=== PATIENT | female | born 1955 | race Caucasian/White ===

== ENCOUNTER → 2018-11-15 08:37 | Outpatient (CLI) | payer BC, SELFPAY ==
[2018-11-15 14:36] LABS: Alanine Aminotransferase 19 U/L (12-78); Albumin Level 3.6 gm/dL (3.4-5.0); Albumin/Globulin Ratio 1.3 (1.1-1.8); Alkaline Phosphatase 81 U/L (46-116); Anion Gap 17.4 mEq/L (5-15); Aspartate Amino Transferase 5 U/L (15-37); Bilirubin,Total 0.4 mg/dL (0.2-1.0); Blood Urea Nitrogen 25 mg/dL (7-18); Calcium 8.9 mg/dL (8.5-10.1); Carbon Dioxide 23 mmol/L (21.0-32.0); Chloride 104 mmol/L (98-107); Chol/HDL Ratio 3.7 (1-3.5); Cholesterol 142 mg/dL (140-200); Creatinine,Serum 1.44 mg/dL (0.55-1.02); Estimated Glomerular Filt Rate 37 ml/min (>60); GFR (African American) 44 ML/MIN (>60); Globulin 2.8 gm/dl (1.3-3.2); Glucose 100 mg/dL (74-106); HDL Cholesterol 38 mg/dL (29-89); LDL Cholesterol 60 mg/dL (0-130); Potassium 4.4 mmoL/L (3.5-5.1); Sodium 140 mmol/L (136-145); Thyroid Stimulating Hormone 0.07 uIU/ml (0.358-3.740); Total Protein,Serum 6.4 gm/dL (6.4-8.2); Triglycerides 218 mg/dL (30-200); VLDL Cholesterol 44 mg/dL (0-40)
== END ==
PROVIDERS: PCP Nurse Practitioner Family; Visit Provider Nurse Practitioner Family
DX: N18.9 Chronic kidney disease, unspecified (principal); E03.4 Atrophy of thyroid (acquired); E78.1 Pure hyperglyceridemia
CPT/HCPCS: 36415; 80053; 80061; 84443

== ENCOUNTER → 2020-09-22 10:52 | Outpatient (CLI) | payer MEDICARE, SELFPAY ==
--- NOTE | 2020-09-22 | CA_ITS ---
APPROVED REPORT EXAM: Comprehensive 2D, Doppler, and color-flow Echocardiogram [employer] Architect: Teressa Osman RT(R) Ht: 4 ft 10 in Wt: 225lbs BSA: 1.91 BP: 148/80 mmHg Indications: SOB, fatigue, obesity, HTN, family history of HD, SOLO 2D Dimensions LVOT 1.90 cm (M/F) 1.5-2.5 M-Mode Dimensions RVDd 3.57 cm (0.9-2.6) LA Diam 4.66 cm (1.9-4.0) LVDd 4.23 cm (3.5-5.7) Ao Diam 2.35 cm (2.0-3.7) LVDs 3.29 cm (3.5-5.7) IVSd 1.03 cm (0.6-1.1) PWd 1.13 cm (0.6-1.1) EF (Teich) 45.20% FS 22.20% EDV (Teich) 79.90 mL ESV (Teich) 43.80 mL LV Diastology E Decel Time 210.00 (160-240 msec) E/A Ratio 0.8 MED E' 10.10 (< 7 cm/sec) E'/MED E' Ratio 6.66 (>14) LAT E' 8.60 (<10 cm/sec) E/LAT E' Ratio 7.83 (>14) Mitral Valve MV E Max Deandre. 67.00 (40-130 cm/s) MV A Velocity 89.00 (40-130 cm/s) E/A Ratio 0.76 MV Decel. Time 210.00 (160-240 ms) MV PHT 62.00 ms Left Ventricle Left atrium is mildly enlarged, left ventricle is normal size, mild concentric left ventricular hypertrophy, visually estimated ejection fraction 55% with no regional wall motion abnormality, grade 1 diastolic dysfunction seen without tissue Doppler evidence of raise left atrial pressure. Right Ventricle Right atrium and right ventricle mildly enlarged with normal contractility. Aortic Valve Aortic valve is minimally thickened and fibrosed, there is no aortic stenosis or aortic insufficiency. Mitral Valve Mitral valve is grossly normal, there is trace mitral regurgitation. Tricuspid Valve Tricuspid valve grossly normal, there is trace tricuspid regurgitation. Tricuspid regurgitation jet velocity is inadequate for calculation of the right ventricular systolic pressure. Pulmonic Valve Pulmonic valve is poorly visualized. Great Vessels Aortic root is normal size. Pericardium No significant pericardial effusion noted. Conclusion 1. Mildly enlarged left atrium, normal left ventricular size, mild concentric left ventricular hypertrophy, visually estimated ejection fraction 55% with no regional wall motion abnormality, grade 1 diastolic dysfunction seen without tissue Doppler evidence of raise left atrial pressure. 2. Mildly enlarged right ventricle with normal contractility. 3. Trace mitral and tricuspid regurgitation. 4. No significant pericardial effusion noted. Electronically signed by : Catarino Scanlon, 09/22/2020 20:38:03
--- NOTE | 2020-09-22 11:45 | XR_ITS ---
PROCEDURE: XR CHEST 2V CLINICAL HISTORY: DYSPNEA,UNSPECIFIED COMPARISON: CR CXR CHEST(2 VIEWS-NOT PORTABLE) from 09/12/2012 CR CXR CHEST(2 VIEWS-NOT PORTABLE) from 04/25/2015 FINDINGS: The cardiomediastinal silhouette and pulmonary vascularity are within normal limits. Tortuous descending thoracic aorta is noted. Minor bibasal atelectasis. No lobar consolidation, pleural effusions or pneumothorax. Minor degenerative changes of the visualized thoracic spine. IMPRESSION: No focal consolidation or pleural effusions. Minor bibasilar atelectasis. Dictated by: Shamika Rocha 09/22/2020 12:16 Shamika Rocha in OV 09/22/2020 12:16
== END ==
PROVIDERS: PCP Nurse Practitioner Family; Visit Provider Nurse Practitioner Family
DX: R06.09 Other forms of dyspnea (principal); I10 Essential (primary) hypertension
CPT/HCPCS: 71046; 93306

== ENCOUNTER → 2020-10-06 08:06 | Outpatient (CLI) | payer MEDICARE, SELFPAY ==
[2020-10-06 08:45] VITALS: PULSE 88; PULSE 90
[2020-10-06 10:29] LABS: Basophils # 0.1 K/mm3 (0-0.2); Basophils % 0.6 % (0.1-2.0); Eosinophils # 0.4 K/mm3 (0.0-0.4); Eosinophils % 4.9 % (0.1-12.0); Hematocrit 29.2 % (37.0-47.0); Hemoglobin 9.8 g/dL (12.2-16.2); Lymphocytes # 1.1 K/mm3 (0.7-4.5); Lymphocytes % 14.8 % (10-50); Mean Corpuscular HGB Conc 33.7 g/dL (31.8-35.4); Mean Corpuscular Hemoglobin 35.6 pg (27.0-31.2); Mean Corpuscular Volume 105.6 fl (81-99); Mean Platelet Volume 7.9 fl (7.4-10.4); Monocytes # 0.2 K/mm3 (0.1-1.0); Monocytes % 3.2 % (1.7-9.3); Neutrophils # 5.5 K/mm3 (1.8-7.8); Neutrophils % 76.5 % (37.0-80.0); Platelet Count 324 K/mm3 (142-424); Red Blood Count 2.77 M/mm3 (4.20-5.40); Red Cell Distribution Width 21.4 % (11.5-17.5); White Blood Count 7.2 K/mm3 (4.8-10.8)
[2020-10-06 10:45] LABS: Chloride 106 mmol/L (98-107)
[2020-10-06 10:46] LABS: Potassium 4.9 mmoL/L (3.5-5.1); Sodium 135 mmol/L (136-145)
[2020-10-06 10:48] LABS: Alanine Aminotransferase 15 U/L (12-78); Alkaline Phosphatase 85 U/L (38-126); Anion Gap 11.9 mEq/L (5-15); Aspartate Amino Transferase 23 U/L (14-36); Bilirubin,Total 0.7 mg/dl (0.2-1.3); Blood Urea Nitrogen 20 mg/dl (7-17); Carbon Dioxide 22 mmol/L (22.0-30.0); Estimated Glomerular Filt Rate 41 ml/min (>60); GFR (African American) 50 ML/MIN (>60)
[2020-10-06 10:49] LABS: Albumin/Globulin Ratio 1.8 (1.1-1.8); Calcium 8.9 mg/dl (8.4-10.2); Globulin 2.2 g/dL (1.3-3.2); Glucose 121 mg/dl (74-100); Iron 115 ug/dL (37-170); Total Protein,Serum 6.2 g/dl (6.3-8.2)
[2020-10-06 10:57] LABS: NT Pro Brain Natriuretic Pep. 627 pg/mL (0-125)
[2020-10-06 11:02] LABS: Total Iron Binding Capacity 385 ug/dL (265-497)
[2020-10-06 11:19] LABS: Thyroid Stimulating Hormone 1.11 uIU/mL (0.465-4.68)
[2020-10-06 14:08] LABS: Ferritin 20.3 ng/ml (11.1-264)
== END ==
PROVIDERS: PCP Nurse Practitioner Family; Visit Provider Nurse Practitioner Family
DX: R06.00 Dyspnea, unspecified (principal); D63.1 Anemia in chronic kidney disease; N18.9 Chronic kidney disease, unspecified
CPT/HCPCS: 36415; 80053; 82728; 83540; 83550; 83880; 84443; 85025; 85378; 94060; 94640; 94727; 94729

== ENCOUNTER 2021-09-17 13:51 | Outpatient (CLI) | payer MEDICARE, SELFPAY ==
[2021-09-17 14:23] VITALS: BMI 45.6
[2021-09-17 14:45] VITALS: BP 166/83; PULSE 74; RESP 18; TEMP 36.3; O2SAT 97
[2021-09-17 15:01] LABS: Chloride 103 mmol/L (98-107)
[2021-09-17 15:02] LABS: Potassium 4.1 mmoL/L (3.5-5.1); Sodium 137 mmol/L (136-145)
[2021-09-17 15:05] LABS: Anion Gap 11.1 mEq/L (5-15); Blood Urea Nitrogen 21 mg/dl (7-17); Calcium 8.5 mg/dl (8.4-10.2); Carbon Dioxide 27 mmol/L (22.0-30.0); Creatinine Clearance Estimated 22 mL/min (50-200); Estimated Glomerular Filt Rate 32 ml/min (>60); GFR (African American) 39 ML/MIN (>60); Glucose 133 mg/dl (74-100)
== END 2021-09-17 15:10 | disposition home or self-care (01) ==
LOC: INF 13:53
PROVIDERS: PCP Nurse Practitioner Family; Visit Provider Internal Medicine Endocrinology, Diabetes & Metabolism
DX: M80.00XG Age-related osteoporosis with current pathological fracture, unspecified site, subsequent encounter for fracture with delayed healing (principal)
CPT/HCPCS: 36415; 80048; 96372; J0897

== ENCOUNTER 2021-12-01 13:36 | Outpatient (CLI) | payer MEDICARE, SELFPAY ==
[2021-12-01 13:57] VITALS: BMI 47.6
--- NOTE | 2021-12-01 14:27 | PC.NURSE ---
Called SILVIANO Rosa from Dr. Augustin office and was told to not give ordered premeds of benedryl and tylenol due to pt not having a ride home. pt stated she didn't feel comfortable driving after taking benedryl so premeds were held.
[2021-12-01 14:36] LABS: Basophils # 0.1 K/mm3 (0-0.2); Basophils % 1.2 % (0.1-2.0); Eosinophils # 0.2 K/mm3 (0.0-0.4); Eosinophils % 2.6 % (0.1-12.0); Hematocrit 31.9 % (37.0-47.0); Hemoglobin 10.5 g/dL (12.2-16.2); Lymphocytes % 12.4 % (10-50); Mean Corpuscular HGB Conc 32.8 g/dL (31.8-35.4); Mean Corpuscular Hemoglobin 29.5 pg (27.0-31.2); Mean Corpuscular Volume 89.9 fl (81-99); Mean Platelet Volume 8.7 fl (7.4-10.4); Monocytes # 0.5 K/mm3 (0.1-1.0); Monocytes % 5.5 % (1.7-9.3); Neutrophils # 6.5 K/mm3 (1.8-7.8); Neutrophils % 78.2 % (37.0-80.0); Platelet Count 293 K/mm3 (142-424); Red Blood Count 3.55 M/mm3 (4.20-5.40); Red Cell Distribution Width 15.9 % (11.5-17.5); White Blood Count 8.3 K/mm3 (4.8-10.8)
[2021-12-01 15:19] VITALS: BP 113/65; PULSE 77; RESP 18; TEMP 36.4; O2SAT 100
[2021-12-01 15:50] VITALS: BP 160/91; PULSE 78; RESP 21; O2SAT 100
== END 2021-12-01 15:50 | disposition home or self-care (01) ==
DX: D50.8 Other iron deficiency anemias (principal); N18.32 Chronic kidney disease, stage 3b
CPT/HCPCS: 85025; 96365; J1756

== ENCOUNTER 2021-12-01 16:00 | Outpatient (RCR) | payer MEDICARE, SELFPAY | END 2021-12-30 13:30 | disposition home or self-care (01) | LOC: PT 16:00 | PROVIDERS: PCP Nurse Practitioner Family; Visit Provider Orthopaedic Surgery Hand Surgery | DX: M25.611 Stiffness of right shoulder, not elsewhere classified (principal) | CPT/HCPCS: 97010; 97014; 97110; 97140; 97163; 97164; 97760; G0283 ==

== ENCOUNTER 2021-12-04 14:05 | Outpatient (CLI) | payer MEDICARE, SELFPAY ==
[2021-12-04 14:30] VITALS: BP 188/84; PULSE 75; RESP 18; O2SAT 99
[2021-12-04 15:10] VITALS: BP 184/90; PULSE 71; RESP 16
== END 2021-12-04 15:30 | disposition home or self-care (01) ==
PROVIDERS: Visit Provider Internal Medicine
DX: N18.32 Chronic kidney disease, stage 3b (principal); D63.1 Anemia in chronic kidney disease; D50.8 Other iron deficiency anemias
CPT/HCPCS: 96365; J1756

== ENCOUNTER 2021-12-08 13:52 | Outpatient (CLI) | payer MEDICARE, SELFPAY ==
[2021-12-08 14:19] VITALS: BP 171/70; PULSE 80; RESP 16; TEMP 36.4; O2SAT 100
[2021-12-08 15:05] VITALS: BP 163/68; PULSE 78; RESP 16; TEMP 36.4; O2SAT 99
== END 2021-12-08 15:08 | disposition home or self-care (01) ==
LOC: INF 13:53
PROVIDERS: Visit Provider Internal Medicine
DX: N18.32 Chronic kidney disease, stage 3b (principal); D50.8 Other iron deficiency anemias
CPT/HCPCS: 96365; J1756

== ENCOUNTER 2021-12-14 13:51 | Outpatient (CLI) | payer MEDICARE, SELFPAY ==
[2021-12-14 14:15] VITALS: BP 158/78; PULSE 84; RESP 18; TEMP 36.6; O2SAT 100
[2021-12-14 15:00] VITALS: BP 162/83; PULSE 86; RESP 18; TEMP 36.6; O2SAT 99
== END 2021-12-14 15:00 | disposition home or self-care (01) ==
LOC: INF 13:52
PROVIDERS: Visit Provider Internal Medicine Gastroenterology
DX: N18.32 Chronic kidney disease, stage 3b (principal); D63.1 Anemia in chronic kidney disease; D50.8 Other iron deficiency anemias
CPT/HCPCS: 96365; J1756

== ENCOUNTER 2021-12-16 13:59 | Outpatient (CLI) | payer MEDICARE, SELFPAY ==
[2021-12-16 14:25] VITALS: BP 151/80; PULSE 79; RESP 18; O2SAT 96
[2021-12-16 15:00] VITALS: BP 146/78; PULSE 74; RESP 16
== END 2021-12-16 15:15 | disposition home or self-care (01) ==
LOC: INF 13:59
PROVIDERS: PCP Nurse Practitioner Family; Visit Provider Internal Medicine
DX: N18.32 Chronic kidney disease, stage 3b (principal)
CPT/HCPCS: 96365; J1756

== ENCOUNTER → 2022-04-06 14:16 | Outpatient (CLI) | payer MEDICARE, SELFPAY ==
--- NOTE | 2022-04-06 14:20 | XR_ITS ---
FINAL REPORT CLINICAL HISTORY: pain FINDINGS: RIGHT FOOT Three views of the right foot were obtained. There is no acute fracture or dislocation. There is mild pes planus. There are moderate degenerative changes at the 1st MTP joint with mild degenerative changes elsewhere. There is lateral angulation of the 2nd distal phalanx at the DIP joint. There is no soft tissue abnormality. IMPRESSION: Mild pes planus and degenerative changes with no acute bony abnormality. Reviewed, Interpreted and Dictated by Gama Briseno III, MD Transcribed by Deja Douglas Authenticated and [facility]
--- NOTE | 2022-04-06 14:20 | XR_ITS ---
FINAL REPORT CLINICAL HISTORY: pain FINDINGS: LEFT ANKLE Three views of the left ankle were obtained. There is no acute fracture or dislocation. There is pes planus. There are mild degenerative changes. There is no soft tissue abnormality. IMPRESSION: Pes planus and mild degenerative changes with no acute bony abnormality. Reviewed, Interpreted and Dictated by Gama Briseno III, MD Transcribed by Deja Douglas Authenticated and [facility]
--- NOTE | 2022-04-06 14:20 | XR_ITS ---
FINAL REPORT CLINICAL HISTORY: pain FINDINGS: RIGHT ANKLE Three views of the right ankle were obtained. There is no acute fracture or dislocation. There is mild pes planus. There are mild degenerative changes. There is no soft tissue abnormality. IMPRESSION: Mild pes planus and degenerative changes with no acute bony abnormality. Reviewed, Interpreted and Dictated by Gama Briseno III, MD Transcribed by Deja Douglas Authenticated and [facility]
--- NOTE | 2022-04-06 14:20 | XR_ITS ---
FINAL REPORT CLINICAL HISTORY: pain FINDINGS: LEFT FOOT Three views of the left foot were obtained. There is no acute fracture or dislocation. There is hallux valgus deformity. There is pes planus. There are moderate degenerative changes at the 1st MTP joint with mild degenerative changes elsewhere. There is no soft tissue abnormality. IMPRESSION: Hallux valgus deformity. Pes planus and degenerative changes with no acute bony abnormality. Reviewed, Interpreted and Dictated by Gama Briseno III, MD Transcribed by Deja Douglas Authenticated and . [facility]
== END ==
PROVIDERS: PCP Nurse Practitioner Family; Visit Provider Podiatrist
DX: M79.671 Pain in right foot (principal); M79.672 Pain in left foot; M25.571 Pain in right ankle and joints of right foot; M25.572 Pain in left ankle and joints of left foot
CPT/HCPCS: 73610; 73630

== ENCOUNTER → 2022-05-07 12:27 | Outpatient (CLI) | payer MEDICARE, SELFPAY ==
--- NOTE | 2022-05-07 12:40 | CA_ITS ---
APPROVED REPORT EXAM: Comprehensive 2D, Doppler, and color-flow Echocardiogram Mammography Tech: Lianne Andres CRT Ht: 4 ft 9 in Wt: 193lbs BSA: 1.77 BP: 140/80 mmHg Indications: CHF,SOLO,GERD,OBESITY,HTN,HLD 2D Dimensions LVOT 1.97 cm (M/F) 1.5-2.5 LA Volume 34.00 mL LA Volume Index 19.20 mL/m2 (M/F) 16-34 M-Mode Dimensions RVDd 2.95 cm (0.9-2.6) LA Diam 3.50 cm (1.9-4.0) LVDd 5.09 cm (3.5-5.7) Ao Diam 4.06 cm (2.0-3.7) LVDs 3.73 cm (3.5-5.7) IVSd 1.86 cm (0.6-1.1) PWd 1.08 cm (0.6-1.1) EF (Teich) 51.90% FS 26.70% EDV (Teich) 123.20 mL ESV (Teich) 59.30 mL LV Diastology E Decel Time 187.00 (160-240 msec) E/A Ratio 0.8 MED E' 4.40 (< 7 cm/sec) MED A' 9.60 cm/s E'/MED E' Ratio 20.70 (>14) LAT E' 4.00 (<10 cm/sec) LAT A' 11.20 cm/s E/LAT E' Ratio 22.77 (>14) Aortic Valve AI PHT 636.00 ms AO Peak GR. 6.10 mmHg Mitral Valve MV E Max Deandre. 91.00 (40-130 cm/s) MV A Velocity 112.00 (40-130 cm/s) E/A Ratio 0.81 MV Decel. Time 187.00 (160-240 ms) MV PHT 55.00 ms Pulmonary Valve PV Peak Velocity 163.00 (50-150 cm/s) Tricuspid Valve TR P. Velocity 279.00 cm/s RAP Estimate 10.00 mmHg RVSP 41.20 mmHg Left Ventricle Left atrium is mildly enlarged, left ventricle is normal size, mild concentric left ventricular hypertrophy, estimated ejection fraction 55% with no regional wall motion abnormality, grade 1 diastolic dysfunction seen with tissue Doppler evidence of raise left atrial pressure. Right Ventricle Right atrium and right ventricle are mildly enlarged with normal contractility. Aortic Valve Aortic valve is minimally thickened and fibrosed there is no aortic stenosis, there is trace aortic insufficiency. Mitral Valve Mitral valve is grossly normal, there is trace mitral regurgitation. Tricuspid Valve Tricuspid valve grossly normal, there is trace tricuspid regurgitation, tricuspid regurgitation request is inadequate for calculation of the right ventricular systolic pressure. Pulmonic Valve Pulmonic valve is poorly visualized. Great Vessels Aortic root is normal size. Inferior vena cava is poorly visualized. Pericardium No significant pericardial effusion noted. Conclusion 1. Mild biatrial enlargement, normal left ventricular size, mild concentric left ventricular hypertrophy, estimated ejection fraction 55% with no regional wall motion abnormality, grade 1 diastolic dysfunction seen with tissue Doppler evidence of raise left atrial pressure. 2. Trace aortic, mitral and tricuspid regurgitation. 3. No significant pericardial effusion. 4. Inferior vena cava is poorly visualized. Electronically signed by : Catarino Scanlon MD 05/07/2022 15:04:51
== END ==
PROVIDERS: PCP Nurse Practitioner Family; Visit Provider Nurse Practitioner
DX: R06.02 Shortness of breath (principal)
CPT/HCPCS: 93306

== ENCOUNTER 2022-05-13 13:00 | Outpatient (RCR) | payer MEDICARE, SELFPAY | END 2022-07-06 13:56 | disposition home or self-care (01) | LOC: PT.CARL 13:00 | PROVIDERS: PCP Nurse Practitioner Family; Visit Provider Nurse Practitioner Family | DX: R27.0 Ataxia, unspecified (principal) | CPT/HCPCS: 97110; 97112; 97163; 97164; 97530 ==

== ENCOUNTER → 2022-07-06 07:50 | Outpatient (CLI) | payer MEDICARE, SELFPAY ==
--- NOTE | 2022-07-06 | CA_ITS ---
APPROVED REPORT Exam: Pharmacologic Technologist: Batool Shaw Ht: 4 ft 9 in Wt: 188 lbs BSA: 1.75 m2 HR: 72 bpm BP: 157/71 mmHg Indications: Shortness of Breath Medical History Medications: Levothyroxine,,,,, Clonidine,,,,, Losartan,,,,, Carvedilol,,,,, Nexium,,,,, ClonAZEPAM,,,,, Albuterol,,,,, OxYbutynin,,,,, Multivitamin,,,,, Nortriptyline,,,,, Furosemide,,,,, Stress Test Details Test: LEXISCAN HR Resting HR: 72 bpm Max Heart Rate (APMHR): 152.310834 bpm Max HR Achieved: 89 bpm Target HR (85% APMHR): 129.638318 bpm % of APMHR: 58.55 Recovery HR: 74 bpm BP Resting BP: 157.0/71.0 mmHg Max BP: 205.0/97.0 mmHg Recovery BP: 155.0/71.0 mmHg ECG Resting ECG: Normal sinus rhythm, rightward axis, low voltage QRS, early repolarization changes. Clinical Exercise duration: 04:00 min Highest Stage Achieved: Stress ECG Conclusion Symptoms: Shortness of air, mild stomach and head discomfort. No chest pain. Arrhythmias/Ectopy: None ST-T Changes: No significant changes Conclusion: Unremarkable Lexiscan stress. Myoview images reported separately. Test Summary REST . . . . . . . Resting REST 04:02 . . 72 . 157/ 71 . . Stage 1 . . . . . . . Myoview Injected Stage 1 01:00 . . 87 . . . . Stage 2 01:00 . . 79 . 156/ 70 . . Stage 3 01:00 . . 80 . 205/ 97 . . Stage 4 01:00 . . 78 . 204/ 94 . Stop exercise at 04:00 RECOVERY 01:00 . . 76 . 189/ 2 . . RECOVERY 02:00 . . 75 . 188/ 92 . . RECOVERY 03:00 . . 75 . 183/ 84 . . RECOVERY 03:58 . . 78 . 155/ 71 . . Electronically signed by : Catarino Scanlon MD 07/07/2022 11:00:47
--- NOTE | 2022-07-06 07:58 | NM_ITS ---
APPROVED REPORT Exam: Nuclear Stress Test Indication: SOB, HTN, Family history Patient Location: Outpatient Stress Tech: Batool Shaw [place] Tech:Melinda De, ZAINABT, RT (R)(N) Ht: 4 ft 9 in Wt: 188 lbs Bra Size: 44D HR: 72 bpm BP: 157/71 mmHg BSA: 1.75 m2 TID: 1.28 BMI: 40.6 History: SOB, HTN, Family history Procedure: Patient received a 0.4 mg of intravenous Lexiscan, resting heart rate 72 bpm, resting blood pressure 157/71 mmHg, with Lexiscan maximum heart rate achived was 89 bpm which is Less than 85 % of the maximum predicted heart rate and blood pressure was 205/97 mmHg. With Lexiscan, patient denied any complaint of chest pain. Electrocardiogram Resting electrocardiogram shows sinus rhythm, with Lexiscan less than 1.[address] segment depression noted from the baseline EKG. The EKG portion of the Lexiscan is nondiagnostic. Cardiac Stress and Resting SPECT Images: Cardiac Stress and Resting SPECT images were obtained using technetium 99m Myoview 32.2 mCi stress and 10.22 mCi at rest. Gated SPECT analysis of segmental wall motion and calculation of the ejection fraction also done. Prone images were not obtained. Cardiac stress and rest SPECT images show uniform myocardial activity without segmental perfusion abnormality, computer derived ejection fraction 54% with no regional wall motion abnormality, right ventricle is mildly enlarged with normal contractility. Conclusion: 1. The EKG portion of the Lexiscan is nondiagnostic. 2. No scintigraphic evidence of reversible ischemia seen, computer derived ejection fraction 54% with no regional wall motion abnormality, right ventricle is mildly enlarged with normal contractility. 3. Normal myocardial perfusion imaging except right ventricle is mildly enlarged with normal contractility. Electronically signed by : Catarino Scanlon MD 07/07/2022 11:03:09
--- NOTE | 2022-07-06 09:13 | HMH.ITSHM ---
Current Home Medications as stated by this patient Dorothy Keating or employee's representative. []OXYBUTYNIN NORTRIPTYLINE MULTIVITAMIN LOSARTAN LEVOTHYROXINE ESOMEPRAZOLE CLONIDINE CLONAZEPAM CARVEDILOL ALBUTEROL
== END ==
PROVIDERS: PCP Nurse Practitioner Family; Visit Provider Nurse Practitioner
DX: R06.02 Shortness of breath (principal)
CPT/HCPCS: 78452; 93017; A9502; J2785

== ENCOUNTER 2022-07-17 14:27 | Emergency (ER) | payer MEDICARE, SELFPAY ==
[2022-07-17 14:35] VITALS: BP 186/84; PULSE 69; RESP 20; TEMP 37; O2SAT 100; BMI 40.0
[2022-07-17 14:38] VITALS: BP 164/88
--- NOTE | 2022-07-17 14:38 | XR_ITS ---
PROCEDURE INFORMATION: Exam: XR Right Hip Exam date and time: 07/17/2022 2:54 PM Age: 66 years old Clinical indication: Hip pain; Right hip; Additional info: Pain/heard a pop TECHNIQUE: Imaging protocol: Radiologic exam of the Right hip. Views: 2 or 3 views hip with pelvis when performed. COMPARISON: No relevant prior studies available. FINDINGS: Bones/joints: Contour irregularity right femoral greater trochanter. Degenerative changes of both hips and sacroiliac joints. Soft tissues: Unremarkable. IMPRESSION: Possible right femoral greater trochanter avulsion fracture.
--- NOTE | 2022-07-17 14:57 | CT_ITS ---
PROCEDURE INFORMATION: Exam: CT Pelvis Without Contrast; Skeletal Exam date and time: 07/17/2022 3:15 PM Age: 66 years old Clinical indication: Injury or trauma; Additional info: Questionable pelvis XR TECHNIQUE: Imaging protocol: Computed tomography of the pelvis without contrast. Exam focused on the skeleton. Radiation optimization: All CT scans at this facility use at least one of these dose optimization techniques: automated exposure control; mA and/or kV adjustment per patient size (includes targeted exams where dose is matched to clinical indication); or iterative reconstruction. COMPARISON: CR XR HIP RT 2-3V W/PELVIS 07/17/2022 2:54 PM FINDINGS: Stomach and bowel: Diffuse sigmoid colonic diverticulosis. Bones/joints: Dystrophic ossification overlying right greater trochanter, likely reflecting sequela of old avulsion fracture. No acute cortical disruption. Degenerative changes of both hips, sacroiliac joints and visualized spine. Soft tissues: Unremarkable. IMPRESSION: No acute findings identified. Likely sequela of old injury in region of right greater trochanter possibly reflecting remote avulsion fracture.
--- NOTE | 2022-07-17 14:57 | PC.NURSE ---
Dr Guevara speaking with phillip
[2022-07-17 15:00] VITALS: BP 166/88; PULSE 71; O2SAT 96
[2022-07-17 15:30] VITALS: BP 158/78; PULSE 73; O2SAT 97
[2022-07-17 16:00] VITALS: BP 151/77; PULSE 74; O2SAT 97
--- NOTE | 2022-07-17 17:06 | HMH.EDGENADL ---
Discharge Plan Disposition Patient Disposition: Home, Self-Care Condition: Good Chief Complaint: PAIN Prescriptions Prescriptions: No Action nortriptyline 75 mg capsule 75 mg PO HS clonazepam 0.5 mg tablet 0.5 mg PO HS levothyroxine 125 mcg tablet 125 mcg PO DAILY oxybutynin chloride 10 mg tablet extended release 24hr 10 mg PO DAILY carvedilol 12.5 mg tablet 12.5 mg PO BID clonidine HCl 0.1 mg tablet 0.1 mg PO BID albuterol sulfate 90 mcg/actuation HFA aerosol inhaler 2 puff IH Q6H PRN (Reason: breathing) esomeprazole magnesium [Nexium] 20 mg capsule,delayed release(DR/EC) 20 mg PO DAILY furosemide 20 mg tablet 20 mg PO DAILY losartan 100 mg tablet 100 mg PO DAILY multivitamin 1 EACH tablet 1 each PO DAILY Referrals Follow up/Referrals: Anu Nielsen [Primary Care Provider] - See instructions Activity Restrictions/Add. Instructions Additional Instructions/Restrictions: Home medication as directed. PCP follow-up in 1 to 2 days Clinical Impressions Clinical Impression: Acute pain of right hip Instructions Patient Instructions: DI for Acute Pain -- Adult Discharge ED Provider: Tirso Guevara General Adult HPI General Chief complaint: PAIN Stated complaint: right hip pain Time Seen by Provider: 07/17/22 14:35 Mode of Arrival: EMS Source of Information: Patient Limitations: No Limitations Description of Symptoms (Recalled from ER Triage Doc. by RN): pt to ed c/o right hip pain. pt states she started PT for sciatic pain yesterday. pt states she was bending over into her cabinet and heard a pop in her hip. pt reports pain to that area. History of Present Illness HPI narrative: 66yo F with past medical history of obesity, osteoarthritis, hammertoes of both feet presents emerged department due to right hip pain. Patient reports she bent over to pick something up and felt a large pop in her right hip that caused excruciating pain. Denies fall. Denies previous episodes similar. Transported by EMS. Related Data Home Medications Medication Instructions Recorded Confirmed albuterol sulfate 90 mcg/actuation 2 puff inhalation Q6H PRN breathing 04/24/20 04/06/22 aerosol inhaler carvedilol 12.5 mg tablet 12.5 mg PO BID blood pressure 04/24/20 04/06/22 clonazepam 0.5 mg tablet 0.5 mg PO HS Anxiety 04/24/20 04/06/22 clonidine HCl 0.1 mg tablet 0.1 mg PO BID blood pressure 04/24/20 04/06/22 esomeprazole magnesium 20 mg 20 mg PO DAILY GERD 04/24/20 04/06/22 capsule,delayed release (Nexium) levothyroxine 125 mcg tablet 125 mcg PO DAILY Supplement 04/24/20 04/06/22 nortriptyline 75 mg capsule 75 mg PO HS fibromyalgia 04/24/20 04/06/22 oxybutynin chloride 10 mg 10 mg PO DAILY bladder 04/24/20 04/06/22 tablet,extended release 24 hr furosemide 20 mg tablet 20 mg PO DAILY Fluid 12/24/20 04/06/22 multivitamin 1 each PO DAILY Supplement 09/17/21 04/06/22 losartan 100 mg tablet 100 mg PO DAILY High blood pressure 12/08/21 04/06/22 Allergies Allergy/AdvReac Type Severity Reaction Status Date / Time Sulfa (Sulfonamide Allergy Unknown Verified 04/06/22 15:18 Antibiotics) [SULFA (SULFONAMIDE ANTIBIOTICS)] [facility] Disclaimer: The information contained in this section may have been updated after the patient was seen, as this information can be updated by other users. Social History Smoking Status: Never smoker alcohol intake: never substance use type: denies use current occupational status: retired Travel in the last 8 weeks: None household members: spouse housing: house ROS Obtained: Yes Systems reviewed as appropriate & no additional complaints except as documented Physical Exam General General appearance: alert Head Head exam: atraumatic Eye Eye exam: Present normal appearance ENT ENT exam: Present normal exam Neck Neck exam: Present normal
[2022-07-17 18:10] VITALS: BP 161/82; PULSE 64; RESP 20; TEMP 37; O2SAT 100
== END 2022-07-17 18:21 | disposition home or self-care (01) ==
PROVIDERS: Emergency Provider Family Medicine; PCP Nurse Practitioner Family
DX: M25.551 Pain in right hip (principal)
CPT/HCPCS: 72192; 73502; 99284

== ENCOUNTER 2022-09-02 13:00 | Outpatient (RCR) | payer MEDICARE, SELFPAY | END 2022-09-06 13:22 | disposition home or self-care (01) | LOC: PT 13:00 | PROVIDERS: PCP Nurse Practitioner Family; Visit Provider Nurse Practitioner Family | DX: M54.31 Sciatica, right side (principal) | CPT/HCPCS: 97110; 97140; 97163; 97164 ==